=== PATIENT | male | born 1960 | race Caucasian/White ===

== ENCOUNTER 2020-09-07 03:16 | Inpatient (IN) | payer BC ==
[~2020-09-07] VITALS: Ht 177.8 cm; Wt 96.7 kg
[2020-09-07] VITALS (8 sets, daily range): BP systolic 99–115; BP diastolic 58–71
[2020-09-07 04:05] LABS: BASO % 0.2 % (0.0-1.0); HEMATOCRIT 46.7 % (42.0-52.0); LYMPH # 0.7 10*3/uL (1.3-4.4); LYMPH % 12.4 % (27.0-41.0); MEAN CELL VOLUME 85.2 fl (80.0-94.0); MEAN CORPUSCULAR HGB 28.3 pg (27.0-31.0); MEAN CORPUSCULAR HGB CONC 33.2 g/dl (33.0-37.0); MEAN PLATELET VOLUME 9.8 fl (9.6-12.3); MONO # 0.6 10*3/uL (0.1-1.0); MONO % 10.7 % (3.0-9.0); NEUT # 4.4 10*3/uL (2.3-7.9); NEUT % 76.4 % (47.0-73.0); PLATELET COUNT AUTOMATED 218 10*3/uL (130-400); RED BLOOD COUNT 5.48 10*6/uL (4.50-5.90); RED CELL DISTRI WIDTH 13.2 % (0-14.5); WHITE BLOOD COUNT 5.8 10*3/uL (4.8-10.8)
[2020-09-07 04:16] LABS: ACT PARTIAL THROMBO TIME 30.1 SECONDS (20.0-32.1); INTERNATIONAL NORM RATIO 1.1 (2.0-3.5)
[2020-09-07 04:20] LABS: ALBUMIN 3.4 gm/dl (3.1-4.5); CREATININE 1.69 mg/dL (0.70-1.30); POTASSIUM 4.4 mmol/L (3.5-5.1); TOTAL PROTEIN 7.9 gm/dL (6.4-8.2)
[2020-09-07 06:48] LABS: FREE T4 1.37 ng/dl (0.76-1.46); THYROID STIM HORMONE (HS) 1.14 uIU/ml (0.358-4.75)
[2020-09-07 07:40] LABS: ABG BASE EXCESS -4.3 mmol/L (-2.0-2.0); ARTERIAL BLOOD GAS PH 7.477 (7.35-7.45); ARTERIAL BLOOD GAS PO2 67.9 (80-90)
[2020-09-07 07:56] LABS: VITAMIN D, 25-HYDROXY 26.4 ng/mL (30-100)
[2020-09-07 10:16] LABS: BILIRUBIN Negative (Negative); BLOOD Negative (Negative); CLARITY Clear (Clear); COLOR Dark Yellow (Yellow); GLUCOSE Negative (Negative); KETONE Trace (Negative); LEUKO ESTERASE Negative (Negative); NITRITE Negative (Negative); SPECIFIC GRAVITY 1.025 (1.001-1.030)
[2020-09-07] MEDS ORDERED: AMLODIPINE BESY10 MG PO (10:16)
[2020-09-07] MEDS ORDERED: ATENOLOL100 M1 PO (10:17)
[2020-09-07] MEDS ORDERED: ZESTRIL40 MG PO (10:17)
[2020-09-07] MEDS ORDERED: ZITHROMAX500 MG PO (10:18)
[2020-09-07] MEDS ORDERED: STROMECTOL PO (10:19)
[2020-09-07 10:23] LABS: BACTERIA 2+; EPITHELIAL CELLS 0-2; RBC 0-2 rbc/hpf (0-2); WBC 0-2 wbc/hpf (0-5)
[2020-09-08] VITALS: BP 103/69
[2020-09-08 06:04] LABS: BASO % 0.1 % (0.0-1.0); HEMATOCRIT 47.4 % (42.0-52.0); LYMPH # 0.8 10*3/uL (1.3-4.4); LYMPH % 7.6 % (27.0-41.0); MEAN CELL VOLUME 85.6 fl (80.0-94.0); MEAN CORPUSCULAR HGB 28.5 pg (27.0-31.0); MEAN CORPUSCULAR HGB CONC 33.3 g/dl (33.0-37.0); MEAN PLATELET VOLUME 10.8 fl (9.6-12.3); MONO # 0.8 10*3/uL (0.1-1.0); NEUT # 8.6 10*3/uL (2.3-7.9); NEUT % 83.9 % (47.0-73.0); PLATELET COUNT AUTOMATED 279 10*3/uL (130-400); RED BLOOD COUNT 5.54 10*6/uL (4.50-5.90); RED CELL DISTRI WIDTH 13.4 % (0-14.5); WHITE BLOOD COUNT 10.3 10*3/uL (4.8-10.8)
[2020-09-08 06:27] LABS: CREATININE 1.54 mg/dL (0.70-1.30); POTASSIUM 4.5 mmol/L (3.5-5.1)
[2020-09-08 08:00] VITALS: BP 110/74
[2020-09-08 09:24] LABS: ABG BASE EXCESS -4.9 mmol/L (-2.0-2.0); ARTERIAL BLOOD GAS PH 7.435 (7.35-7.45); ARTERIAL BLOOD GAS PO2 74.6 (80-90)
[2020-09-08 12:00] VITALS: BP 109/62
[2020-09-08 16:00] VITALS: BP 94/61
[2020-09-08 20:00] VITALS: BP 105/62
[2020-09-09] VITALS: BP 106/61
[2020-09-09 05:48] LABS: CREATININE 1.57 mg/dL (0.70-1.30); POTASSIUM 4.3 mmol/L (3.5-5.1)
[2020-09-09 06:08] LABS: BASO % 0.1 % (0.0-1.0); HEMATOCRIT 44.6 % (42.0-52.0); LYMPH # 0.9 10*3/uL (1.3-4.4); LYMPH % 6.1 % (27.0-41.0); MEAN CELL VOLUME 86.9 fl (80.0-94.0); MEAN CORPUSCULAR HGB 28.7 pg (27.0-31.0); MEAN PLATELET VOLUME 10.6 fl (9.6-12.3); MONO % 6.9 % (3.0-9.0); NEUT # 12.7 10*3/uL (2.3-7.9); NEUT % 85.1 % (47.0-73.0); PLATELET COUNT AUTOMATED 321 10*3/uL (130-400); RED BLOOD COUNT 5.13 10*6/uL (4.50-5.90); RED CELL DISTRI WIDTH 13.5 % (0-14.5); WHITE BLOOD COUNT 14.9 10*3/uL (4.8-10.8)
[2020-09-09 08:00] VITALS: BP 110/69
[2020-09-09 12:00] VITALS: BP 112/71
[2020-09-09 16:00] VITALS: BP 105/57
[2020-09-09 20:00] VITALS: BP 111/61
[2020-09-10] VITALS: BP 112/69
[2020-09-10 05:33] LABS: ALBUMIN 2.8 gm/dl (3.1-4.5); ALKALINE PHOSPHATASE 50 U/L (45-117); CHLORIDE 113 mmol/L (98-107); CREATININE 1.35 mg/dL (0.70-1.30); LDH 256 U/L (87-241); POTASSIUM 4.7 mmol/L (3.5-5.1); SGOT/AST 32 IU/L (3-35); SGPT/ALT 45 U/L (12-78); SODIUM 140 mmol/L (136-145); TOTAL PROTEIN 6.9 gm/dL (6.4-8.2)
[2020-09-10 05:34] LABS: BUN 36 mg/dl (7-24)
[2020-09-10 06:29] LABS: BASO % 0.1 % (0.0-1.0); HEMATOCRIT 43.1 % (42.0-52.0); LYMPH # 1.1 10*3/uL (1.3-4.4); LYMPH % 6.9 % (27.0-41.0); MEAN CELL VOLUME 86.5 fl (80.0-94.0); MEAN CORPUSCULAR HGB 28.7 pg (27.0-31.0); MEAN CORPUSCULAR HGB CONC 33.2 g/dl (33.0-37.0); MEAN PLATELET VOLUME 10.7 fl (9.6-12.3); MONO # 1.4 10*3/uL (0.1-1.0); MONO % 8.6 % (3.0-9.0); NEUT # 12.9 10*3/uL (2.3-7.9); NEUT % 82.7 % (47.0-73.0); PLATELET COUNT AUTOMATED 346 10*3/uL (130-400); RED BLOOD COUNT 4.98 10*6/uL (4.50-5.90); RED CELL DISTRI WIDTH 13.6 % (0-14.5); WHITE BLOOD COUNT 15.6 10*3/uL (4.8-10.8)
[2020-09-10 08:00] VITALS: BP 119/67
[2020-09-10 12:00] VITALS: BP 110/64
[2020-09-10 16:00] VITALS: BP 113/61
[2020-09-10 20:00] VITALS: BP 113/57
[2020-09-11] VITALS: BP 119/62
[2020-09-11 06:26] LABS: BASO % 0.1 % (0.0-1.0); HEMATOCRIT 43.4 % (42.0-52.0); LYMPH # 1.1 10*3/uL (1.3-4.4); LYMPH % 7.1 % (27.0-41.0); MEAN CELL VOLUME 85.4 fl (80.0-94.0); MEAN CORPUSCULAR HGB 28.1 pg (27.0-31.0); MEAN CORPUSCULAR HGB CONC 32.9 g/dl (33.0-37.0); MONO # 1.5 10*3/uL (0.1-1.0); MONO % 9.2 % (3.0-9.0); NEUT # 13.1 10*3/uL (2.3-7.9); NEUT % 82.6 % (47.0-73.0); PLATELET COUNT AUTOMATED 341 10*3/uL (130-400); RED BLOOD COUNT 5.08 10*6/uL (4.50-5.90); RED CELL DISTRI WIDTH 13.4 % (0-14.5); WHITE BLOOD COUNT 15.9 10*3/uL (4.8-10.8)
[2020-09-11 06:42] LABS: BUN 30 mg/dl (7-24); CHLORIDE 111 mmol/L (98-107); CREATININE 1.23 mg/dL (0.70-1.30); LDH 298 U/L (87-241); POTASSIUM 4.3 mmol/L (3.5-5.1); SODIUM 141 mmol/L (136-145)
[2020-09-11 08:00] VITALS: BP 136/69
[2020-09-11 12:00] VITALS: BP 133/79
[2020-09-11 16:00] VITALS: BP 130/64
[2020-09-11 20:00] VITALS: BP 139/79
[2020-09-11 21:07] LABS: ARTERIAL BLOOD GAS PH 7.466 (7.35-7.45); ARTERIAL BLOOD GAS PO2 78.4 (80-90)
[2020-09-12] VITALS: BP 144/82
[2020-09-12 06:16] LABS: BASO % 0.2 % (0.0-1.0); LYMPH # 1.1 10*3/uL (1.3-4.4); LYMPH % 8.4 % (27.0-41.0); MEAN CELL VOLUME 85.7 fl (80.0-94.0); MEAN CORPUSCULAR HGB 28.5 pg (27.0-31.0); MEAN CORPUSCULAR HGB CONC 33.3 g/dl (33.0-37.0); MEAN PLATELET VOLUME 10.2 fl (9.6-12.3); MONO # 1.3 10*3/uL (0.1-1.0); MONO % 9.8 % (3.0-9.0); NEUT # 10.6 10*3/uL (2.3-7.9); NEUT % 80.6 % (47.0-73.0); PLATELET COUNT AUTOMATED 311 10*3/uL (130-400); RED BLOOD COUNT 5.37 10*6/uL (4.50-5.90); RED CELL DISTRI WIDTH 13.3 % (0-14.5); WHITE BLOOD COUNT 13.2 10*3/uL (4.8-10.8)
[2020-09-12 06:39] LABS: ALBUMIN 3.1 gm/dl (3.1-4.5); ALKALINE PHOSPHATASE 63 U/L (45-117); BUN 32 mg/dl (7-24); CHLORIDE 104 mmol/L (98-107); CREATININE 1.27 mg/dL (0.70-1.30); POTASSIUM 4.7 mmol/L (3.5-5.1); SGOT/AST 38 IU/L (3-35); SGPT/ALT 65 U/L (12-78); SODIUM 137 mmol/L (136-145); TOTAL PROTEIN 7.2 gm/dL (6.4-8.2)
[2020-09-12 06:40] LABS: LDH 357 U/L (87-241)
[2020-09-12 08:00] VITALS: BP 133/75
[2020-09-12 12:00] VITALS: BP 111/68
[2020-09-12] MEDS ORDERED: PROCTOZONE-HC30 GM R (14:14)
[2020-09-12] MEDS ORDERED: Lovenox40 MG/0.4 PO (14:14)
[2020-09-12] MEDS ORDERED: ATENOLOL50 M1 PO (14:14)
[2020-09-12] MEDS ORDERED: DECADRON6 M1 PO (14:14)
[2020-09-12 16:00] VITALS: BP 113/72
== END 2020-09-12 17:56 | DRG 177 ==
LOC: ED 03:16 → EDHOLD 06:04 → 4E 06:04
PROVIDERS: Emergency Medicine; Hospitalist; Internal Medicine; ADMIT Internal Medicine; ATTEND Internal Medicine
PROC: 5A0945A Assistance with Respiratory Ventilation, 24-96 Consecutive Hours, High Flow/Velocity Cannula (ICD-10-PCS; 2020-09-07)
PROC: XW033E5 Introduction of Remdesivir Anti-infective into Peripheral Vein, Percutaneous Approach, New Technology Group 5 (ICD-10-PCS; principal; 2020-09-08)
PROC: 5A0935A Assistance with Respiratory Ventilation, Less than 24 Consecutive Hours, High Flow/Velocity Cannula (ICD-10-PCS; 2020-09-09)
PROC: 5A0935A Assistance with Respiratory Ventilation, Less than 24 Consecutive Hours, High Flow/Velocity Cannula (ICD-10-PCS; 2020-09-10)
PROC: 5A0935A Assistance with Respiratory Ventilation, Less than 24 Consecutive Hours, High Flow/Velocity Cannula (ICD-10-PCS; 2020-09-11)
PROC: 5A09357 Assistance with Respiratory Ventilation, Less than 24 Consecutive Hours, Continuous Positive Airway Pressure (ICD-10-PCS; 2020-09-11)
PROC: 5A0935A Assistance with Respiratory Ventilation, Less than 24 Consecutive Hours, High Flow/Velocity Cannula (ICD-10-PCS; 2020-09-12)
PROC: 5A09357 Assistance with Respiratory Ventilation, Less than 24 Consecutive Hours, Continuous Positive Airway Pressure (ICD-10-PCS; 2020-09-12)
DX: U07.1 COVID-19 (principal); J96.01 Acute respiratory failure with hypoxia; J12.82 Pneumonia due to coronavirus disease 2019; N17.0 Acute kidney failure with tubular necrosis; E87.1 Hypo-osmolality and hyponatremia; R19.7 Diarrhea, unspecified; Z85.528 Personal history of other malignant neoplasm of kidney; R73.9 Hyperglycemia, unspecified; E83.41 Hypermagnesemia; R74.01 Elevation of levels of liver transaminase levels; I10 Essential (primary) hypertension; Z90.5 Acquired absence of kidney; Z87.891 Personal history of nicotine dependence; Z88.6 Allergy status to analgesic agent; Z88.8 Allergy status to other drugs, medicaments and biological substances; Z83.3 Family history of diabetes mellitus; Z79.899 Other long term (current) drug therapy